=== PATIENT | male | born 1975 | race African-American/Black ===

== ENCOUNTER 2018-03-25 07:07 | Emergency (ER) | payer OTHER | END 2018-03-25 09:24 | disposition home or self-care (01) | LOC: FTE 07:07 | DX: H10.9 Unspecified conjunctivitis (principal); L25.9 Unspecified contact dermatitis, unspecified cause | CPT/HCPCS: 99283 ==

== ENCOUNTER 2018-04-07 16:25 | Emergency (ER) | payer OTHER ==
[2018-04-07] MEDS: FLUORESCEIN STRIP LEFT EYE (17:23)
[2018-04-07] MEDS: KETOROLAC 60 MG INJ IM (17:27)
[2018-04-07] MEDS ORDERED: HYDROCODONE/APAP (5/325) TAB PO (17:30)
== END 2018-04-07 17:46 | disposition home or self-care (01) ==
LOC: FTE 16:25
DX: H57.12 Ocular pain, left eye (principal)
CPT/HCPCS: 96372; 99284-25

== ENCOUNTER 2019-01-20 09:59 | Emergency (ER) | payer OTHER ==
[2019-01-20] MEDS: CEFTRIAXONE 1 GM INJ IM (10:37)
[2019-01-20] MEDS: LIDOCAINE 1% (MPF) 5 ML VIAL INJ (10:37)
== END 2019-01-20 10:51 | disposition home or self-care (01) ==
LOC: FTE 10:51
DX: K08.9 Disorder of teeth and supporting structures, unspecified (principal)
CPT/HCPCS: 96372; 99284-25

== ENCOUNTER 2019-03-13 06:33 | Emergency (ER) | payer MEDICAID, OTHER | END 2019-03-13 07:25 | disposition home or self-care (01) | LOC: FTE 06:33 | DX: H10.32 Unspecified acute conjunctivitis, left eye (principal); J45.909 Unspecified asthma, uncomplicated | CPT/HCPCS: 99283; Z7502 ==